=== PATIENT | female | born 1985 | race Caucasian/White ===

== ENCOUNTER 2020-05-25 16:18 | Inpatient (IN) | payer SELFPAY ==
[~2020-05-25] VITALS: Ht 160 cm; Wt 58.1 kg
--- NOTE | 2020-05-25 17:22 | PHYS DOC ---
Past Medical History Past Medical History: Anxiety, Depression Past Surgical History: Other Smoking Status: Current Every Day Smoker Alcohol Use: Occasionally General Adult EDM: Chief Complaint: ANXIETY/PANIC ATTACK HPI: HPI: Patient is a 34-year-old female who presents to the emergency room complaining of a panic attack. Prior to arrival patient was tachycardic and tachypneic. Upon arrival patient is feeling much better after receiving Versed. Patient has no additional complaints. She has Lorazepam which she takes at home for anxiety. Review of Systems: Review of Systems: General: Denies fever, chills, sweats, fatigue Eyes: Denies drainage, blurred vision, eye redness HENT: Denies rhinorrhea, sore throat, earache Respiratory: Denies cough, shortness of breath, wheezing Cardiac: Denies edema, palpitations, chest pain GI: Denies abdominal pain, Nausea, vomiting MSK: Denies back pain, neck pain Skin: Denies rash, jaundice Neuro: Denies headache, dizziness Psychiatric: Denies SI/HI. Reports anxiety Heart Score: Risk Factors: Risk Factors: DM, Current or recent (<one month) smoker, HTN, HLP, family history of CAD, obesity. Risk Scores: Score 0 - 3: 2.5% MACE over next 6 weeks - Discharge Home Score 4 - 6: 20.3% MACE over next 6 weeks - Admit for Clinical Observation Score 7 - 10: 72.7% MACE over next 6 weeks - Early Invasive Strategies Physical Exam: PE: General: Awake, alert, NAD. Well Nourished, well hydrated. Cooperative HEENT: Atraumatic, EOMI, PERRL, airway patent, moist oral mucosa Neck: Supple, trachea midline Respiratory: CTA bilaterally, normal effort, no wheezing/crackles CV: RRR, no murmur, cap refill <2 GI: Soft, nondistended, nontender, no masses MSK: No obvious deformities Skin: Warm, dry, intact Neuro: A&O x3, speech NL, sensory and motor grossly intact, no focal deficits Psych: Normal affect, normal mood, not suicidal or homicidal Current Patient Data: Vital Signs: Vital Signs Date Time Temp Pulse Resp B/P (MAP) Pulse Ox O2 Delivery O2 Flow Rate FiO2 05/25/20 16:40 98.6 93 16 116/80 (92) 100 Room Air 98.6 EKG: EKG: [] Radiology/Procedures: Radiology/Procedures: [] Course & Med Decision Making: Course & Med Decision Making Pertinent Labs and Imaging studies reviewed. (See chart for details) Patient is 34-year-old female presents the emergency room after having a panic attack. Patient is feeling much better now. She was observed in the emergency room and has no further complaints. Patient's test results and vitals while in the ED were fully reviewed and discussed with the patient. Patient is stable and at this time does not need admission to the hospital. We have discussed strict return precautions and the importance of following up with their Primary Care Physician. Patient stated understanding and was given an opportunity to ask any questions. Patient is in agreement with plan. Dragon Disclaimer: Dragon Disclaimer: This electronic medical record was generated, in whole or in part, using a voice recognition dictation system. Departure Departure Impression: Primary Impression: Anxiety Disposition: 01 HOME, SELF-CARE Condition: STABLE Referrals: NO PCP (PCP) Patient Instructions: Anxiety and Panic Attacks Justicifation of Admission Dx: Justifications for Admission: Justification of Admission Dx: N/A MARGARET LOCO MD May 25, 2020 17:22
[2020-05-25 18:14] LABS: CALCIUM 8.8 mg/dL (8.5-10.1); CREATININE 1.1 mg/dL (0.6-1.0); GFR 57.6
[2020-05-25 18:23] LABS: POTASSIUM 1.8 mmol/L (3.5-5.1)
[2020-05-25] MEDS ORDERED: POTASSIUM CHLORIDE 20 MEQ TABLET.ER. PO ONE (18:30)
[2020-05-25] MEDS ORDERED: MAGNESIUM SULFATE 2GM 50 ML IV ONE (19:45)
[2020-05-25] MEDS: POTASSIUM CHLORIDE 10MEQ 100 ML IV SCH ×3 (20:15→23:37)
[2020-05-25] MEDS ORDERED: IV NORMAL SALINE 1000ML BAG 1,000 ML IV ONE (20:30)
[2020-05-25] MEDS ORDERED: ACETAMINOPHEN 325 MG TABLET. PO PRN (20:45)
[2020-05-25] MEDS ORDERED: ONDANSETRON PF 4 MG/2 ML VIAL. IV PRN ×2 (20:45→21:30)
[2020-05-25] MEDS ORDERED: traMADol 50 MG TABLET PO PRN (21:30)
[2020-05-25] MEDS ORDERED: POTASSIUM CL 40MEQ D5-0.45NACL 1,000 ML IV SCH (22:00)
--- NOTE | 2020-05-25 23:00 | NUR ---
The patient, MARIA DOLORES MARTIN, 34 y/o, F admitted by ENMA PEGUERO MD, was given written information regarding hospital policies, unit procedures and contact persons. Valuables were checked and left with her.
[2020-05-25 23:18] VITALS: BP 126/76
[2020-05-26] MEDS: POTASSIUM CHLORIDE 10MEQ 100 ML IV SCH ×3 (00:51→12:42)
[2020-05-26 02:55] VITALS: BP 130/90
--- NOTE | 2020-05-26 04:13 | EKG ---
[facility] [address] [place] [address] Test Date: 2020-05-25 Test Time: 20:24:28 Pat Name: MARIA DOLORES MARTIN Department: Room: Gender: F Sheep Rancher: : 1985 Requested By: CHENTE GEORGE Order Number: [id number] Reading MD: Measurements Intervals [place] Rate: 65 P: 0 WA: 140 QRS: 62 QRSD: 78 T: 48 QT: 456 QTc: 480 Interpretive Statements SINUS RHYTHM PROLONGED QT NO SPECIFIC ECG ABNORMALITIES RI6.02 No previous ECG available for comparison
[2020-05-26 05:40] LABS: CALCIUM 7.8 mg/dL (8.5-10.1); CREATININE 0.6 mg/dL (0.6-1.0); GFR 115.9; MAGNESIUM 2.2 mg/dL (1.8-2.4)
[2020-05-26 05:46] LABS: POTASSIUM 2.7 mmol/L (3.5-5.1)
[2020-05-26 07:00] VITALS: BP 123/85
[2020-05-26] MEDS ORDERED: POTASSIUM CHLORIDE 20 MEQ TABLET.ER. PO ONE ×3 (09:00→17:00)
--- NOTE | 2020-05-26 10:47 | PDOC1 ---
History and Physical Date of Admission Date of Admission DATE: 05/26/20 TIME: 10:34 Identification/Chief Complaint Chief Complaint Hand cramping Source Source: Patient History of Present Illness History of Present Illness Patient is a 34-year-old female with past medical history of anxiety, who presents to the ER for evaluation of bilateral hand cramping began on the day of admission. Patient reports associated tachycardia and tachypnea that she attributes to her history of anxiety. Patient describes a history of similar symptoms 2 months ago in which she was hospitalized for hypokalemia. She states she has a sensitive stomach and for this reason has a poor diet that consists largely of "applesauce and chicken ". She was told in her last hospitalization that she needs to improve her diet. She states she does not have a PCP because she does not have insurance, however she is employed. She denies any diarrhea, vomiting, or diuretic use. K 1.8, Mg 1.3 Past Medical History Past Medical History Anxiety, depression Past Surgical History Past Surgical History Thyroid surgery Family History Family History: No Significant Social History Smoke: <1 pack per day ALCOHOL: occassional Drugs: Marijuana Current Problem List Problem List Problems Medical Problems: (1) Anxiety Status: Acute Current Medications Current Medications Current Medications Potassium Chloride (Klor-Con) 40 meq 1X ONCE PO Last administered on 05/25/20at 18:38; Start 05/25/20 at 18:30; Stop 05/25/20 at 18:31; Status DC Magnesium Sulfate 50 ml @ 25 mls/hr 1X ONCE IV Last administered on 05/25/20at 19:46; Start 05/25/20 at 19:45; Stop 05/25/20 at 21:44; Status DC Potassium Chloride/Water 100 ml @ 100 mls/hr Q1H IV Last administered on 05/26/20at 00:51; Start 05/25/20 at 19:45; Stop 05/25/20 at 23:44; Status DC Sodium Chloride 1,000 ml @ 100 mls/hr 1X ONCE IV Last administered on 05/25/20at 20:20; Start 05/25/20 at 20:30; Stop 05/26/20 at 06:29; Status DC Ondansetron HCl (Zofran) 4 mg PRN Q8HRS PRN IV NAUSEA/VOMITING; Start 05/25/20 at 20:45; Stop 05/25/20 at 21:25; Status DC Acetaminophen (Tylenol) 650 mg PRN Q4HRS PRN PO FEVER > 100.3'F; Start 05/25/20 at 20:45 Ondansetron HCl (Zofran) 4 mg PRN Q4HRS PRN IV NAUSEA/VOMITING 1ST CHOICE Last administered on 05/26/20at 01:58; Start 05/25/20 at 21:30 Tramadol HCl (Ultram) 50 mg PRN Q6HRS PRN PO MODERATE PAIN 4-6; Start 05/25/20 at 21:30 Potassium Chloride/Dextrose/ Sod Cl 1,000 ml @ 75 mls/hr [id number] IV Last administered on 05/25/20at 23:47; Start 05/25/20 at 22:00; Stop 05/26/20 at 11:19 Potassium Chloride/Water 100 ml @ 100 mls/hr Q1H IV Last administered on 05/26/20at 08:45; Start 05/26/20 at 07:00; Stop 05/26/20 at 10:59 Potassium Chloride (Klor-Con) 40 meq 1X ONCE PO ; Start 05/26/20 at 09:00; Stop 05/26/20 at 09:04; Status DC Potassium Chloride (Klor-Con) 40 meq 1X ONCE PO ; Start 05/26/20 at 12:00; Stop 05/26/20 at 12:01 Allergies Allergies: Coded Allergies: No Known Drug Allergies (Unverified , 05/25/20) ROS Review of System GENERAL: No history of weight change, weakness or fevers. SKIN: No bruising, hair changes or rashes. EYES: No blurred, double or loss of vision. NOSE AND THROAT: No history of nosebleeds, hoarseness or sore throat. HEART: Denies chest pain, denies palpitations. LUNGS: Denies cough, hemoptysis, wheezing or shortness of breath. GASTROINTESTINAL: Denies nausea, vomiting, abdominal pain. GENITOURINARY: Denies dysuria, frequency, urgency, hematuria. NEUROLOGIC: Denies history of numbness, tingling, tremor or weakness. PSYCHIATRIC: Anxiety. Denies depression. ENDOCRINE: No history of heat or cold intolerance, polyuria or polydipsia. EXTREMITIES: Muscle cramping. Denies muscle weakness, joint pain, pain on walking or stiffness. Physical Exam Physical Exam General: Alert, Oriented X3, Cooperative, No acute distress HEENT: PERRLA, EOMI Lungs: Clear to auscultation, Normal air movement Heart: RRR, no murmurs Cardiovascular: S1, S2 Abdomen: Normal bowel sounds, Soft, No tenderness Extremities: No clubbing, No cyanosis Skin: No rashes, No significant lesion Neuro: Normal speech, Normal tone, Sensation intact Psych/Mental Status: Mental status NL, Mood NL Vitals Vitals Vital Signs Date Time Temp Pulse Resp B/P (MAP) Pulse Ox O2 Delivery O2 Flow Rate FiO2 05/26/20 07:00 98.6 85 18 123/85 (98) 99 Room Air 98.6 Labs Labs Laboratory Tests Test 05/25/20 17:32 05/26/20 05:03 Sodium Level 137 mmol/L (136-145) 139 mmol/L (136-145) Potassium Level 1.8 mmol/L (3.5-5.1) 2.7 mmol/L (3.5-5.1) Chloride Level 93 mmol/L (98-107) 100 mmol/L (98-107) Carbon Dioxide Level 33 mmol/L (21-32) 34 mmol/L (21-32) Anion Gap 11 (6-14) 5 (6-14) Blood Urea Nitrogen 5 mg/dL (7-20) 4 mg/dL (7-20) Creatinine 1.1 mg/dL (0.6-1.0) 0.6 mg/dL (0.6-1.0) Estimated GFR (Cockcroft-Gault) 57.6 115.9 Glucose Level 119 mg/dL (70-99) 95 mg/dL (70-99) Calcium Level 8.8 mg/dL (8.5-10.1) 7.8 mg/dL (8.5-10.1) Magnesium Level 1.3 mg/dL (1.8-2.4) 2.2 mg/dL (1.8-2.4) Laboratory Tests Test 05/25/20 17:32 05/26/20 05:03 Sodium Level 137 mmol/L (136-145) 139 mmol/L (136-145) Potassium Level 1.8 mmol/L (3.5-5.1) 2.7 mmol/L (3.5-5.1) Chloride Level 93 mmol/L (98-107) 100 mmol/L (98-107) Carbon Dioxide Level 33 mmol/L (21-32) 34 mmol/L (21-32) Anion Gap 11 (6-14) 5 (6-14) Blood Urea Nitrogen 5 mg/dL (7-20) 4 mg/dL (7-20) Creatinine 1.1 mg/dL (0.6-1.0) 0.6 mg/dL (0.6-1.0) Estimated GFR (Cockcroft-Gault) 57.6 115.9 Glucose Level 119 mg/dL (70-99) 95 mg/dL (70-99) Calcium Level 8.8 mg/dL (8.5-10.1) 7.8 mg/dL (8.5-10.1) Magnesium Level 1.3 mg/dL (1.8-2.4) 2.2 mg/dL (1.8-2.4) VTE Prophylaxis Ordered VTE Prophylaxis Devices: Yes VTE Pharmacological Prophylaxi: No Assessment/Plan Assessment/Plan Hypokalemia Hypomagnesemia Vasomotor nephropathy Plan: Patient was given IV replace and her serum potassium responded appropriately. We will switch to oral potassium replacement 40 mEq twice daily and recheck potassium in the afternoon. Recommended dietary sources of potassium, and that patient establish primary care. She is stable for discharge barring appropriate potassium replacement. VTE prophylaxis Regular diet Full code, patient did not name a DPOA Justifications for Admission Other Justification Hypokalemia GERARD GONZALEZ MD May 26, 2020 10:47
[2020-05-26 10:48] VITALS: BP 121/82
[2020-05-26 14:14] LABS: CALCIUM 8.2 mg/dL (8.5-10.1); CREATININE 0.6 mg/dL (0.6-1.0); GFR 115.9
[2020-05-26 14:18] LABS: POTASSIUM 2.9 mmol/L (3.5-5.1)
[2020-05-26 15:00] VITALS: BP 122/89
--- NOTE | 2020-05-26 15:33 | PDOC3 ---
Discharge Summary Visit Information Date of Admission: May 26, 2020 Date of Discharge: May 26, 2020 Final Diagnosis Problems Medical Problems: (1) Anxiety Status: Acute Brief Hospital Course Allergies Allergies Coded Allergies Type Severity Reaction Last Updated Verified No Known Drug Allergies 05/25/20 No Vital Signs Vital Signs Date Time Temp Pulse Resp B/P (MAP) Pulse Ox O2 Delivery O2 Flow Rate FiO2 05/26/20 15:00 98.2 82 18 122/89 (100) 100 Room Air 98.2 Lab Results Laboratory Tests Test 05/25/20 17:32 05/26/20 05:03 05/26/20 13:55 Sodium Level 137 mmol/L (136-145) 139 mmol/L (136-145) 137 mmol/L (136-145) Potassium Level 1.8 mmol/L (3.5-5.1) 2.7 mmol/L (3.5-5.1) 2.9 mmol/L (3.5-5.1) Chloride Level 93 mmol/L (98-107) 100 mmol/L (98-107) 100 mmol/L (98-107) Carbon Dioxide Level 33 mmol/L (21-32) 34 mmol/L (21-32) 34 mmol/L (21-32) Anion Gap 11 (6-14) 5 (6-14) 3 (6-14) Blood Urea Nitrogen 5 mg/dL (7-20) 4 mg/dL (7-20) 3 mg/dL (7-20) Creatinine 1.1 mg/dL (0.6-1.0) 0.6 mg/dL (0.6-1.0) 0.6 mg/dL (0.6-1.0) Estimated GFR (Cockcroft-Gault) 57.6 115.9 115.9 Glucose Level 119 mg/dL (70-99) 95 mg/dL (70-99) 103 mg/dL (70-99) Calcium Level 8.8 mg/dL (8.5-10.1) 7.8 mg/dL (8.5-10.1) 8.2 mg/dL (8.5-10.1) Magnesium Level 1.3 mg/dL (1.8-2.4) 2.2 mg/dL (1.8-2.4) Laboratory Tests Test 9/14/20 17:32 05/26/20 05:03 05/26/20 13:55 Sodium Level 137 mmol/L (136-145) 139 mmol/L (136-145) 137 mmol/L (136-145) Potassium Level 1.8 mmol/L (3.5-5.1) 2.7 mmol/L (3.5-5.1) 2.9 mmol/L (3.5-5.1) Chloride Level 93 mmol/L (98-107) 100 mmol/L (98-107) 100 mmol/L (98-107) Carbon Dioxide Level 33 mmol/L (21-32) 34 mmol/L (21-32) 34 mmol/L (21-32) Anion Gap 11 (6-14) 5 (6-14) 3 (6-14) Blood Urea Nitrogen 5 mg/dL (7-20) 4 mg/dL (7-20) 3 mg/dL (7-20) Creatinine 1.1 mg/dL (0.6-1.0) 0.6 mg/dL (0.6-1.0) 0.6 mg/dL (0.6-1.0) Estimated GFR (Cockcroft-Gault) 57.6 115.9 115.9 Glucose Level 119 mg/dL (70-99) 95 mg/dL (70-99) 103 mg/dL (70-99) Calcium Level 8.8 mg/dL (8.5-10.1) 7.8 mg/dL (8.5-10.1) 8.2 mg/dL (8.5-10.1) Magnesium Level 1.3 mg/dL (1.8-2.4) 2.2 mg/dL (1.8-2.4) Brief Hospital Course Ms. Tosacno is a 34 old female who presented with hypokalemia. Potassium was replaced appropriately. After discussion with patient, she reports a history of similar symptoms, last time being less than 3 months ago. Recommended patient consume a diet rich in potassium and be followed by primary care doctor for further evaluation. Discharge Information Condition at Discharge: Improved Disposition/Orders: D/C to Home No Active Prescriptions or Reported Meds Justicifation of Admission Dx: Justifications for Admission: Justification of Admission Dx: N/A GERARD GONZALEZ MD May 26, 2020 15:33
--- NOTE | 2020-05-26 16:45 | NUR ---
SW following. Spoke with RN and reviewed chart. Pt to discharge home today, 05/26 self-care. Pt on room air and oral medications. No SW needs at discharge.
--- NOTE | 2020-05-26 18:00 | NUR ---
pt discharged home with significant other. meds and follow up reviewed. pt encouraged to find a PCP to establish care. IV removed cath intact.
== END 2020-05-26 18:00 | disposition home or self-care (01) | DRG 640 ==
LOC: ER 16:18 → 5 NORTH 20:00
PROVIDERS: ADMIT Internal Medicine; ATTEND Internal Medicine
DX: E87.6 Hypokalemia (principal); N17.0 Acute kidney failure with tubular necrosis; F41.9 Anxiety disorder, unspecified; E83.42 Hypomagnesemia; F17.210 Nicotine dependence, cigarettes, uncomplicated; F41.0 Panic disorder [episodic paroxysmal anxiety]; F32.9 Major depressive disorder, single episode, unspecified; Z79.899 Other long term (current) drug therapy
CPT/HCPCS: 36415; 80048; 83735; 84132; 93005; 96365; 96366; 99285; J2405; J3475; J3480; J7030; G0378